=== PATIENT | female | born 1985 | race Caucasian/White ===

== ENCOUNTER 2022-03-31 10:10 | Emergency (ER) | payer OTHER, BC ==
[2022-03-31] MEDS ORDERED: Ketorolac Tromethamine 60 MG/2 ML VIAL ONE (10:33)
[2022-03-31] MEDS ORDERED: Cyclobenzaprine 10 MG TAB ONE (10:57)
== END 2022-03-31 11:13 | disposition home or self-care (01) ==
LOC: NAV ERS 10:10
DX: S39.012A Strain of muscle, fascia and tendon of lower back, initial encounter (principal); X50.9XXA Other and unspecified overexertion or strenuous movements or postures, initial encounter
CPT/HCPCS: 96372; 99283; J1885

== ENCOUNTER → 2022-04-17 | Emergency (ER) | payer BC ==
[~2022-04-17] MED LIST: Iopamidol 370 76% 100 ML VIAL ONE
[2022-04-17 07:34] LABS: INR-International Normal Ratio 0.9; Prothrombin Time 12.7 sec (12.0-14.7)
[2022-04-17 07:35] LABS: PTT 25.7 sec (22.9-36.1)
[2022-04-17 07:40] LABS: #Basophils 0.1 thou/uL (0.0-0.2); #Eosinphils 0.2 thou/uL (0.0-0.7); #Lymphocytes 2.4 thou/uL (1.20-3.40); #Monocytes 0.5 thou/uL (0.11-0.59); %Basophils 1.2 % (0.0-1.0); %Eosinophils 1.8 % (0.0-10.0); %Lymphocytes 29.2 % (21.0-51.0); %Monocytes 6.2 % (0.0-10.0); %Neutrophils 61.6 % (42.0-75.0); Hemoglobin 14.2 g/dL (12.0-16.0); Mean Corpuscular HGB CONC 33.6 g/dL (32.0-36.0); Mean Corpuscular Hemoglobin 29.6 pg (27.0-31.0); Mean Corpuscular Volume 88.2 fl (78.0-98.0); Mean Platelet Volume 7.8 fL (7.4-10.4); Platelet Count 316 10x3/uL (130-400); RBC Distribution Width 12.2 % (11.5-14.5); White Blood Cell (WBC) Count 8.2 10x3/uL (4.8-10.8)
[2022-04-17 07:43] LABS: ALT (SGPT) 19 U/L (8-55); AST (SGOT) 17 U/L (5-34); Albumin 4.4 g/dL (3.5-5.0); Alkaline Phosphatase 51 U/L (40-110); Anion Gap 12 mmol/L (10-20); BUN (Urea Nitrogen) 12 mg/dL (7.0-18.7); Bilirubin, Total 0.4 mg/dL (0.2-1.2); CK (CPK) 71 U/L (29-168); Calc. Creatinine Clearance 0 mL/min (70-130); Calcium 9.6 mg/dL (7.8-10.44); Carbon Dioxide 28 mmol/L (22-29); Chloride 104 mmol/L (98-107); Estimated GFR 98; Glucose 109 mg/dL (70-105); Potassium 3.4 mmol/L (3.5-5.1); Protein, Total 7.4 g/dL (6.0-8.3); Sodium 141 mmol/L (136-145)
[2022-04-17 07:44] LABS: Bicarbonate (HCO3v) 23.5 mmol/L (22.0-28.0); CO2 Tension (PvCO2) 29.1 mmHg (42.0-51.0)
[2022-04-17 07:45] LABS: Base Excess-Venous 1.5 mmol/L (-2.0 to 3.0); Chloride 104 mmol/L (98-107); Potassium 3.4 mmol/L (3.5-5.1); Sodium 140 mmol/L (138-145); T. Carbon Dioxide 24.4 mmol/L (22.0-28.0); vO2 Saturation-calc 99.7 % (60.0-85.0)
[2022-04-17 07:46] LABS: Calcium, Ionized 1.06 mmol/L (1.15-1.33)
== END ==
LOC: NAV ERS 07:06
DX: R20.0 Anesthesia of skin (principal); I10 Essential (primary) hypertension; G43.909 Migraine, unspecified, not intractable, without status migrainosus; R29.701 NIHSS score 1; Z79.899 Other long term (current) drug therapy
CPT/HCPCS: 36415; 36416; 70450; 70496; 70498; 80053; 82330; 82550; 82803; 84484; 85014; 85025; 85610; 85730; 86140; 93005; Q9967

== ENCOUNTER 2022-05-23 17:33 | Emergency (ER) | payer OTHER, BC ==
[2022-05-23] MEDS ORDERED: traMADol HCl 50 MG TAB ONE ×2 (18:18)
[2022-05-23] MEDS ORDERED: Naproxen 500 MG TAB ONE (18:33)
[2022-05-23] MEDS ORDERED: Ipratropium/Albuterol 3 ML NEB ONE (20:16)
== END 2022-05-23 18:38 | disposition home or self-care (01) ==
LOC: NAV ERS 17:33
DX: S93.401A Sprain of unspecified ligament of right ankle, initial encounter (principal); X50.1XXA Overexertion from prolonged static or awkward postures, initial encounter
CPT/HCPCS: J7620